=== PATIENT | male | born 1975 | race Hispanic/Latino ===

== ENCOUNTER → 2018-12-01 | Outpatient (CLI) | payer BC ==
[~2018-12-01] MED LIST: IOPAMIDOL 370 MG/ML 200 ML INFUS..BTL INJ ONE; SODIUM CHLORIDE 0.9% 50ML 50 ML ONE
[2018-12-01 17:12] LABS: BLOOD UREA NITROGEN 26 mg/dL (7-26); BUN/CREATININE RATIO 27 (6-25); CREATININE, SERUM 0.97 mg/dL (0.72-1.25); EST GLOMERULAR FILTRATION RATE > 60 ML/MIN (60-)
--- NOTE | 2018-12-02 16:06 | Diagnostic Imaging Report ---
EXAM: CT ABDOMEN AND PELVIS IV CONTRAST DATE: 12/01/2018 Time stamp on Exam: 1743 hours INDICATION: Hepatomegaly COMPARISON: None TECHNIQUE: The abdomen was scanned using a multidetector helical scanner. Coronal and sagittal reformations were obtained. Routine protocol performed. Technique modification was utilized to maintain the lowest dose possible to the patient. IV Contrast: 100 cc of Isovue-370 Oral Contrast: None Radiation Dose: Total DLP 508.52 mGy*cm Estimated effective dose: DLP x 0.015 x size factor FINDINGS: LOWER THORAX: No consolidations LIVER: No masses. No evidence of hepatic enlargement. BILIARY: The gallbladder is unremarkable. No ductal dilatation. SPLEEN: No masses PANCREAS: No masses ADRENALS: No nodules KIDNEYS: Symmetric perfusion. No enhancing masses. No hydronephrosis. There is a large exophytic 6.1 cm left renal cyst. GI TRACT: No distention, wall thickening or evidence of obstruction. VESSELS: There are 2 renal veins on the right. PERITONEUM/RETROPERITONEUM: No free air or fluid LYMPH NODES: No lymphadenopathy SOFT TISSUES: Unremarkable BONES: No suspicious bone lesions. Hemangioma of the T9, T10 and L3 vertebral body. Anterior superior compression abnormality of L5. IMPRESSION: 1. Large exophytic left renal cyst. 2. Normal-appearing liver. 3. Multiple vertebral body hemangiomas. Signed by: Dr. Masoud Cortes DO on 12/02/2018 4:03 PM
== END ==
LOC: CT 15:50
PROVIDERS: ATTEND Internal Medicine Gastroenterology
DX: R16.0 Hepatomegaly, not elsewhere classified (principal)
CPT/HCPCS: 36415; 74160; 82565; 84520; Q9967

== ENCOUNTER → 2020-09-13 | Outpatient (CLI) | payer BC | LOC: US 07:35 | PROVIDERS: ATTEND Internal Medicine Gastroenterology | DX: R16.0 Hepatomegaly, not elsewhere classified (principal) | CPT/HCPCS: 76705 ==